=== PATIENT | female | born 1970 ===

== ENCOUNTER → 2018-08-16 21:21 | Outpatient (ROUT) | payer OTHER, SELFPAY ==
[2018-08-17 01:46] LABS: Rubella Antibody IgG 17.8 IU/mL (>15)
[2018-08-20 15:19] LABS: Rubeola Measles IgG < 25.00 AU/mL (< 25.00)
== END ==
PROVIDERS: Visit Provider Physician Assistant
DX: Z01.84 Encounter for antibody response examination (principal); Z13.89 Encounter for screening for other disorder
CPT/HCPCS: 36415; 86735; 86762; 86765